=== PATIENT | male | born 1965 | race Caucasian/White ===

== ENCOUNTER → 2020-12-15 12:58 | Outpatient (CLI) | payer BC, SELFPAY ==
[2020-12-15 16:03] LABS: Probe Check PASS; Specimen Processing Control PASS
== END ==
PROVIDERS: PCP Family Medicine; Referring Provider Family Medicine; Visit Provider Family Medicine
DX: Z20.822 Contact with and (suspected) exposure to COVID-19 (principal)
CPT/HCPCS: 87635; C9803; U0005; U0003